=== PATIENT | male | born 1975 | race Caucasian/White ===

== ENCOUNTER 2023-11-17 17:03 | Emergency (ER) | payer BC ==
[2023-11-17] MEDS: Rocuronium 50 MG/5 ML Vial IVPUSH ONE (17:09)
[2023-11-17] MEDS: Etomidate 2 MG/ML 20 ML SDV IVPUSH ONE (17:09)
[2023-11-17] MEDS: propofoL 100 ML IV SCH (17:16)
[2023-11-17] MEDS ORDERED: Sodium Chloride 0.9% 10 ML Syringe FLUSH PRN (17:19)
[2023-11-17 17:25] LABS: BASOPHILS ABSOLUTE AUTO 0.1 K/mm3 (0.0-0.2); BASOPHILS PERCENT AUTO 0.6 % (0.0-1.0); EOSINOPHILS ABSOLUTE AUTO 0.5 K/mm3 (0.0-0.4); EOSINOPHILS PERCENT AUTO 2.7 % (0.0-6.0); HEMATOCRIT 47.3 % (42.0-52.0); HEMOGLOBIN 16.8 gm/dl (14.0-18.0); IMMATURE GRAN ABSOLUTE AUTO 0.27 K/mm3 (0.00-0.05); IMMATURE GRAN PERCENT AUTO 1.6 % (0.0-0.4); LYMPHOCYTES ABSOLUTE AUTO 5.8 K/mm3 (1.0-4.8); LYMPHOCYTES PERCENT AUTO 33.4 % (24.0-44.0); MEAN CORPUSCULAR HEMOGLOBIN 30.2 pg (28.0-32.0); MEAN CORPUSCULAR HGB CONC 35.5 g/dl (32.0-36.0); MEAN CORPUSCULAR VOLUME 84.9 fl (83.0-99.0); MEAN PLATELET VOLUME 9.8 fl (9.4-12.4); NEUTROPHILS ABSOLUTE AUTO 9.6 K/mm3 (1.8-7.7); NEUTROPHILS PERCENT AUTO 55.7 % (41.0-71.0); PLATELET COUNT,PLT 301 K/mm3 (150-400); RED BLOOD CELL COUNT 5.57 M/mm3 (4.52-5.90); WHITE BLOOD CELL COUNT,WBC 17.19 K/mm3 (3.9-11.3)
[2023-11-17] MEDS ORDERED: propofoL 100 ML IV SCH (17:30)
[2023-11-17 17:37] LABS: PROTHROMBIN TIME 10.6 SECONDS (9.7-12.0)
[2023-11-17 17:38] LABS: PTT,PARTIAL THROMBOPLSTIN TIME 26.9 SECONDS (21.7-31.4)
[2023-11-17 17:49] LABS: SLIDE REVIEW ABNORMAL SMEAR
[2023-11-17 17:54] LABS: A/G RATIO 1.1 (1-2); ALANINE AMINOTRANSFERASE,ALT 20 U/L (16-63); ALBUMIN 3.8 g/dl (3.4-5.0); ALKALINE PHOSPHATASE 82 U/L (46-116); ANION GAP 16.5 (5-15); BILIRUBIN TOTAL 0.3 mg/dL (0.2-1.0); BLOOD UREA NITROGEN,BUN 13 mg/dL (7-18); BUN/CREATININE RATIO 10.8 (14-18); CALCIUM 8.6 mg/dL (8.5-10.1); CARBON DIOXIDE,CO2 24 mEq/L (21-32); CHLORIDE,CL 101 mEq/L (98-107); CREATININE 1.2 mg/dL (0.7-1.3); ESTIMATED GFR 75 mL/min (>60); ETHANOL BLOOD MEDICAL 0.11 gm% (0.00); GLUCOSE RANDOM 102 mg/dL (70-99); LIPASE 41 U/L (16-77); MAGNESIUM 2.1 mg/dL (1.8-2.4); PROTEIN TOTAL,TP 7.3 g/dl (6.4-8.2); SODIUM,NA 137 mEq/L (136-145)
[2023-11-17] MEDS: propofoL 100 ML ONE (17:58)
[2023-11-17] MEDS: Sodium Chloride 0.9% 1,000 ML IV ONE (18:00)
[2023-11-17 18:01] LABS: POTASSIUM,K 4.5 mEq/L (3.5-5.1); TROPONIN I HIGH SENSITIVITY < 4 pg/mL (<=76)
[2023-11-17 18:02] LABS: ASPARTATE AMNIOTRANSFERASE,AST 30 U/L (15-37); CREATINE KINASE,CK 218 U/L (39-308)
[2023-11-17] MEDS: Diphtheria,Pertussis(Acell),Tetanus Vaccine 0.5 ML Syringe IM ONE (18:13)
[2023-11-17] MEDS: Midazolam 1 MG/ML 5 ML SDV IVPUSH ONE (18:20)
[2023-11-17] MEDS: Tranexamic Acid 1,000 MG/10 ML Vial IV ONE (18:25)
[2023-11-17] MEDS: levETIRAcetam 1,000 MG in Sodium Chloride 0.9% 100 ML IV ONE (18:30)
[2023-11-17 19:14] LABS: BASE EXCESS ARTERIAL -4.7 (-2-2.0); BICARBONATE,ARTERIAL 23.1 meq/L (22.0-26.0)
== END 2023-11-17 18:35 ==
LOC: JD.ED 17:03
DX: S06.5XAA Traumatic subdural hemorrhage with loss of consciousness status unknown, initial encounter (principal); S06.6XAA Traumatic subarachnoid hemorrhage with loss of consciousness status unknown, initial encounter; S42.114A Nondisplaced fracture of body of scapula, right shoulder, initial encounter for closed fracture; S12.9XXA Fracture of neck, unspecified, initial encounter; S72.91XA Unspecified fracture of right femur, initial encounter for closed fracture; S06.309A Unspecified focal traumatic brain injury with loss of consciousness of unspecified duration, initial encounter; Z23 Encounter for immunization; V29.498A Other motorcycle driver injured in collision with other motor vehicles in traffic accident, initial encounter; Y93.89 Activity, other specified; Z88.0 Allergy status to penicillin
CPT/HCPCS: 31500; 36415; 36600; 51702; 70450; 71045; 71260; 72125; 72170; 74177; 80053; 80307; 82550; 82803; 83605; 83690; 83735; 84484; 85025; 85610; 85730; 86850; 86900; 86901; 90471; 90715; 93005; 96365; 96366; 96368; 96375; 99291; G0390; J1953; J2250; J2704; J3490; J7030; 93010